=== PATIENT | male | born 1985 | race Caucasian/White ===

== ENCOUNTER 2019-05-10 09:03 | Emergency (ER) | payer OTHER, SELFPAY ==
[2019-05-10 09:11] VITALS: BP 187/87; PULSE 94; RESP 16; TEMP 36.4; O2SAT 99
--- NOTE | 2019-05-10 09:15 | ED.LOWEXIN ---
HPI - Extremity Injury (Lower) General Chief Complaint: Extremity Injury, Lower Stated Complaint: R HIP PAIN Time Seen by Provider: 05/10/19 09:20 Source: patient and RN notes reviewed Mode of arrival: ambulatory Limitations: no limitations History of Present Illness HPI Narrative: 33-year-old male presents with concern for right hip pain since Wednesday. Reports he was having sexual intercourse with his when he felt hip pain. He reports he has been taking Tylenol with no pain relief. Reports pain is minimal during the day, however hurts with weightbearing and when sleeping at night. He denies any trauma, falls. complaint: hip injury Related Data Home Medications Medication Instructions Recorded Confirmed alprazolam 05/10/19 anastrozole mg 05/10/19 escitalopram oxalate mg 05/10/19 flu vac [id number] 36mos up(PF) IM 05/10/19 [Afluria Qd (3yr up)(PF)] lisinopril-hydrochlorothiazide tablet 05/10/19 ondansetron 05/10/19 vortioxetine [Trintellix] mg 05/10/19 Allergies Allergy/AdvReac Type Severity Reaction Status Date / Time No Known Allergies Allergy Unknown Unverified 10/27/16 10:13 Review of Systems Review of Systems: Narrative: CONSTITUTIONAL: Denies malaise, chills, sweats, or fever. CARDIOVASCULAR: Denies chest pain, palpitations, or edema. RESPIRATORY: Denies cough or dyspnea. GASTROINTESTINAL: Denies abdominal pain, nausea, vomiting, diarrhea. Denies loss of bowel function GENITOURINARY: Denies dysuria or hematuria. Denies loss of bladder function SKIN: Denies bruise MUSCULOSKELETAL: Reports right hip pain NEUROLOGIC: Denies numbness, weakness All systems reviewed & are unremarkable except as noted in HPI and below PMFSH Family History Family History (Updated 10/27/16 @ 13:24 by DOCTOR UNKNOWN) Mother Hypertension Family history of diabetes mellitus in first degree relative Father Malignant neoplasm of prostate Family history of diabetes mellitus in first degree relative Other Diabetes mellitus Family history of malignant neoplasm Social History Social History Smoking status: Never smoker Second hand tobacco smoke exposure: No Alcohol intake: current Comments At time of signature, agree with nursing past medical, surgical, social and family history. There is no relevant family history pertinent to the presenting complaint Exam Narrative: Exam Narrative: GENERAL: Well-appearing, well-nourished, and in no acute distress. Morbidly obese HEAD: Normocephalic EYES: PERRLA, conjunctivae clear NECK: Supple. CHEST: Speaks in full sentences. No respiratory distress. HEART: Regular rate and rhythm. EXTREMITIES: Right hip has normal strength and sensation, normal range of motion. 4/5 strength with hip flexion and extension. Normal sensation with sensitivity to light touch and pain. Skin warm, dry, pink. Capillary refill less than 3 seconds. SKIN: Warm, dry NEURO: Alert and oriented x3. PSYCH: Normal mood and affect Course Course Emergency Course: Patient is aware of diagnosis, understands and agrees to treatment plan. Anticipatory guidance given. Patient agrees to follow-up as directed and is aware of reasons to seek care at the emergency department. Portions of this record may have been created with voice recognition software Vital Signs Vital signs: Vital Signs Temperature 97.6 F 05/10/19 09:11 Pulse Rate 94 05/10/19 09:11 Respiratory Rate 16 05/10/19 09:11 Blood Pressure 187/87 H 05/10/19 09:11 Pulse Oximetry 99 05/10/19 09:11 Temperature 97.6 F 05/10/19 09:11 Pulse Rate 94 05/10/19 09:11 Respiratory Rate 16 05/10/19 09:11 Blood Pressure 187/87 H 05/10/19 09:11 Pulse Oximetry 99 05/10/19 09:11 Reviewed. MDM - Extremity Injury (Lower) MDM Narrative Medical decision making narrative: Patients injury and pain is consistent with musculoskeletal etiology. No signs of neurological or vascular compromise on exam. Compar
== END 2019-05-10 09:37 | disposition home or self-care (01) ==
PROVIDERS: Emergency Provider Nurse Practitioner; PCP Family Medicine
DX: S76.011A Strain of muscle, fascia and tendon of right hip, initial encounter (principal); X58.XXXA Exposure to other specified factors, initial encounter; I10 Essential (primary) hypertension; G47.30 Sleep apnea, unspecified; F41.9 Anxiety disorder, unspecified
CPT/HCPCS: 99213; G0463

== ENCOUNTER 2020-02-09 11:14 | Emergency (ER) | payer OTHER, SELFPAY ==
[2020-02-09 11:20] VITALS: BP 199/100; PULSE 125; RESP 20; TEMP 36.4; O2SAT 99
--- NOTE | 2020-02-09 11:28 | ED.GENADULT ---
HPI - General Adult General Chief complaint: Skin/Abscess/Foreign Body Stated complaint: Pos skin abcess Source: patient Mode of arrival: ambulatory Limitations: no limitations History of Present Illness HPI narrative: 34 y/o male. PMH includes: HTN, MDD, Morbid Obesity. Presents to Urgent Care clinic today with complaints of skin bumps for past few months . Pt reports to have had erythema, bumps, and irritation to bilateral axilla and groin since summer . He notes some areas are draining . He states to have had issues like these many times historically. He has attempted to contact his PCP, but notes to have been postponed due to current Covid 19 pandemic. Home care to areas includes daily cleansing and OTC remedies for irritation. Home remedies have been subtherapeutic in providing healing or relief per client report. No fever, chills. He is non-diabetic, although multiple risk factors. No additional acute c/o has been relayed upon PE. Related Data Home Medications Medication Instructions Recorded Confirmed flu vac [id number] 36mos up(PF) IM 05/10/19 [Afluria Qd (3yr up)(PF)] vortioxetine [Trintellix] 20 mg PO DAILY 05/10/19 02/09/20 brexpiprazole [Rexulti] 1 mg PO DAILY 02/09/20 02/09/20 lisinopril-hydrochlorothiazide 1 tablet PO DAILY 02/09/20 02/09/20 omeprazole 20 mg PO DAILY 02/09/20 02/09/20 quetiapine 100 mg PO HS 02/09/20 02/09/20 Allergies Allergy/AdvReac Type Severity Reaction Status Date / Time No Known Allergies Allergy Unknown Verified 02/09/20 11:35 Review of Systems Review of Systems: Narrative: CONSTITUTIONAL: Denies fever, chills, sweats. EYES: Denies visual changes, redness, discharge. ENT: Denies rhinorrhea, congestion, sore throat, otalgia. CARDIOVASCULAR: Denies chest pain, palpitations, edema. RESPIRATORY: Denies dyspnea, wheezing, cough GASTROINTESTINAL: Denies abdominal pain, nausea, vomiting, diarrhea. GENITOURINARY: Denies dysuria, hematuria, abnormal discharge SKIN: 'Bumps' to axilla and groin. Positive 'irritation'. MUSCULOSKELETAL: Denies acute back pain, joint pain, or myalgia. NEUROLOGIC: Denies numbness, or focal weakness. PSYCHIATRIC: Denies anxiety or depression. [facility] Family History Family History Mother Hypertension Family history of diabetes mellitus in first degree relative Father Malignant neoplasm of prostate Family history of diabetes mellitus in first degree relative Other Diabetes mellitus Family history of malignant neoplasm Social History Social History Smoking status: Never smoker Second hand tobacco smoke exposure: No Alcohol intake: current Exam Narrative: Exam Narrative: GENERAL: This is a well-nourished, well-developed patient, in no apparent distress. Morbidly obese. HEAD: normocephalic, atraumatic. EYES: PERRL. Sclera clear/white. Vision is grossly intact. EARS: External ears normal, auditory canals clear and without drainage, TMs normal without perforation. Hearing grossly intact. NOSE: External nose normal with no obvious nasal discharge, nares without redness, no rhinorrhea. THROAT: Mucous membranes moist, posterior pharynx clear. NECK: Neck supple, non-tender without lymphadenopathy, masses or thyromegaly. CARDIOVASCULAR: Regular rate and rhythm without murmurs, gallops, or rubs. RESPIRATORY: Clear to auscultation. Breath sounds equal bilaterally. No wheezes, rales, or rhonchi. GASTROINTESTINAL: Abdomen soft, non-tender, nondistended. Bowel sounds are active. No hepato-splenomegaly, or palpable masses. No guarding. SKIN: Good turgor. Skin is warm. There are multiple scattered erythematous areas noted under bilateral axillas. These areas do not appear fluctuant. I do not appreciate any open areas or discharge to bilateral axilla. There are multiple scattered areas to bilateral inner groin and abdominal pannus racheal
[2020-02-09 11:45] VITALS: PULSE 101
[2020-02-09] MEDS: cefTRIAXone 1 GM VIAL IM (12:04)
== END 2020-02-09 12:40 | disposition home or self-care (01) ==
PROVIDERS: Emergency Provider Nurse Practitioner Adult Health
DX: L73.9 Follicular disorder, unspecified (principal); L03.314 Cellulitis of groin; I10 Essential (primary) hypertension; E66.01 Morbid (severe) obesity due to excess calories; Z68.44 Body mass index [BMI] 60.0-69.9, adult; F32.9 Major depressive disorder, single episode, unspecified
CPT/HCPCS: 96372; 99213; G0463; J0696